=== PATIENT | female | born 1955 | race Two or more races ===

== ENCOUNTER → 2024-10-04 | Outpatient (CLI) | payer MEDICARE, SELFPAY ==
--- NOTE | 2024-10-04 12:20 | XR_ITS ---
Examination: Bone densitometry Date and time of exam:October 04, 2024 1235 hours INDICATIONS: Menopause age 53 diabetic, levothyroxine 28 years Technique: Lumbar spine and hip total bone mineralization values of an calculated. Peak reference and age match control results have been displayed. Findings: Lumbar spine total bone mineralization is0.748 gm/cm2. This is 2.7 standard deviations below peak reference. This is .5 standard deviations below age-matched controls. Hip total bone mineralization is 0.808 gm/cm2 This is 1.1 standard deviations below peak reference. This is 0.5 standard deviations above age-matched controls Impression: There is osteoporosis based on lumbar spine measurements. There is osteopenia based on hip measurements
== END | disposition home or self-care (01) ==
PROVIDERS: PCP Physician Assistant Medical; Referring Provider Physician Assistant Medical; Visit Provider Physician Assistant Medical
DX: M81.0 Age-related osteoporosis without current pathological fracture (principal); M85.88 Other specified disorders of bone density and structure, other site
CPT/HCPCS: 77080